=== PATIENT | female | born 1995 | race Caucasian/White ===

== ENCOUNTER 2024-03-27 09:04 | Outpatient (AMB) | payer OTHER, SELFPAY ==
[2024-03-27 09:15] VITALS: BP 132/80; BMI 57.7
--- NOTE | 2024-03-27 09:15 | MHC.PC.OV ---
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 Accompanied by: Self / Same As Patient Allergies No Known Allergies Allergy (Verified 03/27/24 09:29) Medication List - Last Reconciled 03/27/24 by Ofelia Orourke MD No Known Home Meds Tobacco use date assessed: 03/27/24 Dental Screening Dental Screen Date: 03/27/24 Did you have a dental visit in the last 12 months?: Yes Did you have a dental problem in the last 6 months where you did not have access to dental care?: No Was dental information given to patient?: Patient has dentist HPI HPI Comments History of Present Illness Details This is a 29-year-old female that comes for her physical exam as new patient. She has moderate major depression with no suicidal thoughts and would like counseling. She is morbidly obese with a BMI of 57.7 and will be referred to weight management. Has never had a Pap smear and will be referred to OBGYN. [facility] Surgical History No pertinent past surgical history Family History Mother Pre-diabetes Father No problems noted. Social History Housing: Apartment Alcohol intake: current Alcohol intake frequency: holidays/special occasions only Alcohol type: wine and other Patient Tobacco Use Status: Never used Tobacco e-Cigarette/Vaping Use: Never Used Second Hand Smoke Exposure: No service: No Current occupational status: employed Current occupational exposures/hazards: No Cognitive needs: No Hearing needs: No Vision needs: Yes Questionnaire PHQ-9 Over the last 2 weeks, how often have you been bothered by any of the following problems? 1. Little interest or pleasure in doing things: nearly every day 2. Feeling down, depressed, or hopeless: not at all 3. Trouble falling or staying asleep, or sleeping too much: several days 4. Feeling tired or having little energy: nearly every day 5. Poor appetite or overeating: more than half the days 6. Feeling bad about yourself - or that you are a failure or have let yourself or your family down: nearly every day 7. Trouble concentrating on things, such as reading the newspaper or watching television: more than half the days 8. Moving or speaking so slowly that other people could have noticed. Or the opposite - being so fidgety or restless that you have been moving around a lot more than usual: more than half the days 9. Thoughts that you would be better off or of hurting yourself in some way: not at all Total score: 16 Depression Screening Interpretation: Positive Depression Screening Follow-up: Existing condition and Follow-up Visit Requested Depression Screening Done: Yes 90000 - PHQ-9 Billing: Yes Source: Developed by Drs. Jose Daniel Canada, Chantel Harper, Bob Heard and colleagues, with an educational ap from [employer]. Thrive Questionnaire Date Thrive assessed: 03/23/24 I am a: Patient What is your living situation today?: I have a steady place to live Within the past 12 months, did the food you bought not last and you didn't have the money to get more?: Sometimes True Within the past 12 months, did you worry whether your food would run out before you got money to buy more?: Sometimes True Do you have trouble paying for medicines?: I choose not to answer this question Do you have trouble getting transportation to medical appointments?: No Do you have trouble paying your heating and electricity bill?: No Do you have trouble taking care of your child, family member or friend?: No Do you have trouble with day-to-day activities such as bathing, preparing meals, shopping, managing finances, etc.?: No Are you currently unemployed and looking for a job?: No Are you interested in more education?: Yes Please select the resources that you would like help with: Food Currently or been in a relationship where the following occur: No concerns reported THRIVE Score: 2 AUDIT C Alcohol Use Questionnaire (AUDIT-C) 1. How often do you have a drink containing alcohol?: Monthly or less 2. How many drinks containing alcohol do you have on a typical day when you are drinking?: 1 or 2 3. How often do you have six or more drinks on one occasion?: Never Total Score: 1 Score Reviewed/Action Taken: No EBONI-7 AMB Questionnaire EBONI-7 Date EBONI - 7 assessed: 03/27/24 Feeling nervous, anxious, or on edge: 1 = Several days Not being able to stop or control worryin = Several days Worrying too much about different things: 2 = More than half the days Trouble relaxin = Not at all Being so restless that it is hard to sit still: 1 = Several days Becoming easily annoyed or irritable: 3 = Nearly every day Feeling afraid as if something awful might happen: 1 = Several days Total EBONI-7 score (0-4 normal; 5-9 mild; 10-14 moderate; 15-21 severe): 9 Source: Developed by Drs. Jose Daniel Canada, Chantel Harper, Bob Heard and colleagues, with an educational ap from [employer]. EBONI-7 Assessment Billing EBONI-7 Assessment Tool: EBONI-7 Assessment 67659 Review of Systems Neuro Reports behavioral changes Psych Reports anxiety and Reports behavioral changes Physical exam (Primary Care) Vital Signs: Last Vital Signs BP 132/80 03/27/24 09:15 BMI result Body Mass Index 57.7 BMI Assessment/Plan discussion: High BMI High, discussed plan: lifestyle, weight reduction, dietary and physical activity Tobacco/Smoking Status: Tobacco use Status Tobacco use date assessed 03/27/24 03/27/24 09:23 Patient Tobacco Use Status Never used Tobacco 03/27/24 09:23 e-Cigarette/Vaping Use Never Used 03/27/24 09:23 PHQ-9: PHQ-9 Score PHQ-9: Total score 16 03/27/24 09:23 Depression Screening Interpretation: Positive Depression Screening Follow-up: Existing condition and Follow-up Visit Requested Thrive Assessment: Date of Thrive Assessment Date Thrive assessed 03/23/24 03/27/24 09:23 Currently or been in a relationship where the following occur: No concerns reported Assessment and Plan Assessment & Plan (1) Physical exam: Code(s): Z00.00 - Encounter for general adult medical examination without abnormal findings Plan: Repeat in a year. (2) Morbid obesity with BMI of 50.0-59.9, adult: Code(s): E66.01 - Morbid (severe) obesity due to excess calories; Z68.43 - Body mass index [BMI] 50.0-59.9, adult Plan: Referred to weight management. BMI goal is less than 30. (3) Moderate major depression: Code(s): F32.1 - Major depressive disorder, single episode, moderate Plan: Referred to counseling. Orders: Orders Comprehensive [place]. Panel Fast Today E66.01 - Morbid (severe) obesity due to excess calories, Z68.43 - Body mass index [BMI] 50.0-59.9, adult Complete Blood Count Auto Diff Today E66.01 - Morbid (severe) obesity due to excess calories, Z68.43 - Body mass index [BMI] 50.0-59.9, adult Lipid Panel Today E66.01 - Morbid (severe) obesity due to excess calories, Z68.43 - Body mass index [BMI] 50.0-59.9, adult Thyroid Stimulating Hormone Today E66.01 - Morbid (severe) obesity due to excess calories, Z68.43 - Body mass index [BMI] 50.0-59.9, adult Referrals Counseling Referral F32.1 - Major depressive disorder, single episode, moderate 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
== END 2024-03-27 09:43 | disposition home or self-care (01) ==
PROVIDERS: Visit Provider Internal Medicine
DX: Z00.00 Encounter for general adult medical examination without abnormal findings (principal); E66.01 Morbid (severe) obesity due to excess calories; Z68.43 Body mass index [BMI] 50.0-59.9, adult; F32.1 Major depressive disorder, single episode, moderate
CPT/HCPCS: 99213; 99385

== ENCOUNTER 2024-04-03 10:05 | Outpatient (REF) | payer OTHER, SELFPAY ==
[2024-04-03 10:34] LABS: MANUAL DIFF FLAG NO
[2024-04-03 11:20] LABS: Basophils Absolute Auto 0.1 X10*3/uL (0.0-0.2); Basophils Percent Auto 0.5 % (0-2); Eosinophils Absolute Auto 0.2 X10*3/uL (0.0-0.4); Eosinophils Percent Auto 1.7 % (0-4); Hematocrit 40.2 % (37.0-47.0); Hemoglobin 12.8 g/dl (12.0-16.0); Imm Gran Abs Auto 0.03 X10*3/uL (0.00-0.03); Imm Gran Pct Auto 0.3 % (0.0-0.4); Lymphocytes Absolute Auto 3.7 X10*3/uL (1.2-4.9); Lymphocytes Percent Auto 39.4 % (20-40); Mean Corpuscular HGB Conc 31.8 g/dl (31.0-35.0); Mean Corpuscular Volume 81.5 fL (80.0-98.0); Monocytes Absolute Auto 0.5 X10*3/uL (0.1-1.2); Neutrophils Percent Auto 53.1 % (45-73); Platelet Count 431 X10*3/uL (160-400); Red Blood Count 4.93 X10*6/uL (4.20-5.50); Red Cell Distribution Width 13.6 % (11.0-16.0); White Blood Count 9.4 X10*3/uL (4.8-10.8)
[2024-04-03 12:48] LABS: Alanine Aminotransferase 15 U/L (0-31); Albumin Level 3.9 g/dL (3.5-5.0); Alkaline Phosphatase 73 U/L (39-117); Anion Gap 12 (12-20); Aspartate Amino Transferase 14 U/L (5-31); Bilirubin Total 0.2 mg/dL (0.0-1.0); Blood Urea Nitrogen 10 mg/dL (9-16); Calcium 9.3 mg/dL (8.4-10.2); Carbon Dioxide 22 mmol/L (22-29); Chloride 107 mmol/L (96-108); Cholesterol 160 mg/dL (<200); Estimated Glomerular Filt Rate > 60; Glucose Fasting 100 mg/dL (60-99); HDL Cholesterol 45 mg/dL (>40); LDL Cholesterol Calculated 104 mg/dL (<100); Potassium 4.3 mmol/L (3.3-5.1); Sodium 137 mmol/L (135-145); Total Protein 7.5 g/dL (6.5-8.0); Triglycerides 55 mg/dL (<150)
== END 2024-04-03 10:06 | disposition home or self-care (01) ==
LOC: HO.LAB 10:05
PROVIDERS: PCP Internal Medicine; Visit Provider Internal Medicine
DX: E66.01 Morbid (severe) obesity due to excess calories (principal); Z68.43 Body mass index [BMI] 50.0-59.9, adult
CPT/HCPCS: 36415; 80053; 80061; 84443; 85025

== ENCOUNTER 2024-09-30 10:47 | Outpatient (AMB) | payer OTHER, SELFPAY ==
--- NOTE | 2024-09-30 10:53 | A.OFFPC_ITS ---
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 Accompanied by: Self / Same As Patient Allergies No Known Allergies Allergy (Verified 09/30/24 11:02) Medication List - Last Reconciled 09/30/24 by Ofelia Orourke MD No Known Home Meds Tobacco use date assessed: 09/30/24 Dental Screening Dental Screen Date: 09/30/24 Did you have a dental visit in the last 12 months?: Yes Did you have a dental problem in the last 6 months where you did not have access to dental care?: No Was dental information given to patient?: Patient has dentist HPI HPI Comments History of Present Illness Details The patient is a 29-year-old female presenting with follow-up for major depressive disorder and evaluation of chest pain. The patient reports mild depression, with a Patient Health Questionnaire-9 (PHQ-9) score of 8, indicating mild symptoms. She had planned counseling, but scheduling conflicts led to delays. Depression is currently manageable without medication, though counseling is considered beneficial. The patient also reports experiencing intermittent chest pain localized to the anterior chest wall, particularly around a persistent subcutaneous mass between her breasts. The mass has been present for years, with increased discomfort occurring recently that correlates with menstrual cycles. Pain is described as pressure-like and emerges at rest. She notes the ability to sometimes express a small amount of material from the mass. The patient has declined surgical evaluation at this point, preferring conservative management. In terms of weight management, the patient acknowledges dietary efforts, including reduced portions and increased awareness of fullness signals. She declined surgical weight management options but expressed interest in non- surgical interventions. There are no noted changes in the dermatological lesion present on the chest wall, nor an increase in size or itching. [facility] Medical History (Updated 09/30/24 @ 11:18 by Ofelia Orourke MD) Moderate major depression Surgical History No pertinent past surgical history Family History Mother Pre-diabetes Father No problems noted. Social History (Updated 09/30/24 @ 11:08 by Ofelia Orourke MD) Housing: Apartment Alcohol intake: current Alcohol intake frequency: holidays/special occasions only Alcohol type: wine and other Patient Tobacco Use Status: Never used Tobacco e-Cigarette/Vaping Use: Never Used Second Hand Smoke Exposure: No service: No Current occupational status: employed Current occupational exposures/hazards: No Cognitive needs: No Hearing needs: No Vision needs: Yes Questionnaire PHQ-9 Over the last 2 weeks, how often have you been bothered by any of the following problems? 1. Little interest or pleasure in doing things: more than half the days 2. Feeling down, depressed, or hopeless: several days 3. Trouble falling or staying asleep, or sleeping too much: not at all 4. Feeling tired or having little energy: not at all 5. Poor appetite or overeating: more than half the days 6. Feeling bad about yourself - or that you are a failure or have let yourself or your family down: not at all 7. Trouble concentrating on things, such as reading the newspaper or watching television: more than half the days 8. Moving or speaking so slowly that other people could have noticed. Or the opposite - being so fidgety or restless that you have been moving around a lot more than usual: several days 9. Thoughts that you would be better off or of hurting yourself in some way: not at all Total score: 8 Depression Screening Interpretation: Positive Depression Screening Follow-up: Existing condition and Follow-up Visit Requested Depression Screening Done: Yes 98431 - PHQ-9 Billing: Yes Source: Developed by Drs. Jose Daniel Canada, Chantel Harper, Bob Heard and colleagues, with an educational ap from [employer]. Thrive Questionnaire Date Thrive assessed: 09/30/24 I am a: Patient What is your living situation today?: I have a steady place to live Within the past 12 months, did the food you bought not last and you didn't have the money to get more?: Sometimes True Within the past 12 months, did you worry whether your food would run out before you got money to buy more?: Sometimes True Do you have trouble paying for medicines?: I choose not to answer this question Do you have trouble getting transportation to medical appointments?: No Do you have trouble paying your heating and electricity bill?: No Do you have trouble taking care of your child, family member or friend?: No Do you have trouble with day-to-day activities such as bathing, preparing meals, shopping, managing finances, etc.?: No Are you currently unemployed and looking for a job?: No Are you interested in more education?: Yes Please select the resources that you would like help with: Food Currently or been in a relationship where the following occur: No concerns reported THRIVE Score: 2 AUDIT C Alcohol Use Questionnaire (AUDIT-C) 1. How often do you have a drink containing alcohol?: Monthly or less 2. How many drinks containing alcohol do you have on a typical day when you are drinking?: 1 or 2 3. How often do you have six or more drinks on one occasion?: Never Total Score: 1 Score Reviewed/Action Taken: No EBONI-7 AMB Questionnaire EBONI-7 Date EBONI - 7 assessed: 09/30/24 Feeling nervous, anxious, or on edge: 1 = Several days Not being able to stop or control worryin = Not at all Worrying too much about different things: 1 = Several days Trouble relaxin = Not at all Being so restless that it is hard to sit still: 0 = Not at all Becoming easily annoyed or irritable: 1 = Several days Feeling afraid as if something awful might happen: 1 = Several days Total EBONI-7 score (0-4 normal; 5-9 mild; 10-14 moderate; 15-21 severe): 4 Source: Developed by Drs. Jose Daniel Canada, Chantel Harper, Bob Heard and colleagues, with an educational ap from [employer]. EBONI-7 Assessment Billing EBONI-7 Assessment Tool: EBONI-7 Assessment 44612 Review of Systems Const All systems reviewed & are unremarkable except as noted in HPI and below Card Denies chest pain at rest, Denies chest pain with activity, Denies edema, Denies irregular heart rhythm, Denies claudication, Denies dyspnea, Denies dyspnea on exertion, Denies orthopnea, Denies paroxysmal nocturnal dyspnea and Denies slow heart rate Resp Denies cough, Denies dyspnea and Denies dyspnea on exertion GI Denies abdominal pain, Denies change in bowel habits, Denies excessive flatus, Denies nausea and Denies vomiting Physical exam (Primary Care) Vital Signs: Last Vital Signs BP 120/82 09/30/24 10:54 BMI result Body Mass Index 57.2 BMI Assessment/Plan discussion: High BMI High, discussed plan: lifestyle, weight reduction, dietary and physical activity Tobacco/Smoking Status: Tobacco use Status Tobacco use date assessed 03/27/24 09/30/24 11:01 Patient Tobacco Use Status Never used Tobacco 09/30/24 11:01 e-Cigarette/Vaping Use Never Used 09/30/24 11:01 PHQ-9: PHQ-9 Score PHQ-9: Total score 8 09/30/24 11:01 Depression Screening Interpretation: Positive Depression Screening Follow-up: Existing condition and Follow-up Visit Requested Thrive Assessment: Date of Thrive Assessment Date Thrive assessed 09/30/24 09/30/24 11:01 Currently or been in a relationship where the following occur: No concerns reported Resp Effort & Inspection: normal respiratory effort Auscultation: clear to auscultation bilaterally Cardio Jugular venous distension: no JVD Rate: regular rate Rhythm: regular rhythm Heart sounds: S1 normal heart sound present and S2 normal heart sound present Extrem General: Yes full ROM Psych Appearance: grossly normal Coding Level of Care Code Est Pt Level 4 (49800) Complex EM visit Add On G2211 Diagnoses Skin lesion L98.9 Chest pain R07.9 Mild recurrent major depression F33.0 Morbid obesity with BMI of 50.0-59.9, adult E66.01; Z68.43 Additional Codes PHQ-9 - 49645 - PHQ-9 Billing: Yes ([id number]) EBONI-7 Assessment Billing - EBONI-7 Assessment Tool: EBONI-7 Assessment 48524 ([id number]) Time Spent (min) 21 Assessment & Plan Assessment & Plan (1) Skin lesion: Code(s): L98.9 - Disorder of the skin and subcutaneous tissue, unspecified Category: Medical (2) Chest pain: Code(s): R07.9 - Chest pain, unspecified Category: Medical (3) Mild recurrent major depression: Code(s): F33.0 - Major depressive disorder, recurrent, mild Category: Medical (4) Morbid obesity with BMI of 50.0-59.9, adult: Code(s): E66.01 - Morbid (severe) obesity due to excess calories; Z68.43 - Body mass index [BMI] 50.0-59.9, adult Category: Medical Plan - A counseling referral will be made to support management of major depressive disorder. - An electrocardiogram EKG) has been ordered to rule out cardiac causes of the chest pain. - A referral to dermatology will be provided for further evaluation of the chest lesion. - Weight management strategies were discussed, recommending portion control and structured eating times, alongside exercise considerations. Patient was informed and verbally consented to the use of an ambient scribe for clinic note documentation during this visit. During this visit, the patient was advised on the benefits of counseling for managing depression, and a referral was initiated. We discussed the chest pain's correlation with menstrual cycles and agreed upon conducting an EKG to eliminate potential cardiac causes. The patient was offered a surgical consultation for the subcutaneous chest mass, which she declined due to apprehension about surgical intervention at this time. Non-surgical weight management strategies were reviewed, including portion control and timing of meals. The referral to dermatology was made for the non-urgent examination of the chest wall lesion. The importance of regular follow-up and adherence to the recommended evaluations was emphasized. Orders: Orders ECG 12 lead EKG Today R07.9 - Chest pain, unspecified Referrals Counseling Referral F33.0 - Major depressive disorder, recurrent, mild Dermatology Referral L98.9 - Disorder of the skin and subcutaneous tissue, unspecified Patient Instructions: - Follow up with counseling services as referred. - Proceed with EKG as discussed. - Follow dietary guidelines: control meal portions, limit carbohydrate intake, and maintain structured meal times. - Visit dermatology for assessment of the chest lesion. - Return for follow-up as needed or if symptoms worsen.
[2024-09-30 10:54] VITALS: BP 120/82; BMI 57.2
== END 2024-09-30 11:17 | disposition home or self-care (01) ==
PROVIDERS: PCP Internal Medicine; Visit Provider Internal Medicine
DX: L98.9 Disorder of the skin and subcutaneous tissue, unspecified (principal); R07.9 Chest pain, unspecified; F33.0 Major depressive disorder, recurrent, mild; E66.01 Morbid (severe) obesity due to excess calories; Z68.43 Body mass index [BMI] 50.0-59.9, adult

== ENCOUNTER → 2024-09-30 10:47 | Outpatient (BNVA) | payer OTHER, SELFPAY | PROVIDERS: PCP Internal Medicine; Visit Provider Internal Medicine | DX: F33.0 Major depressive disorder, recurrent, mild (principal); L98.9 Disorder of the skin and subcutaneous tissue, unspecified; R07.9 Chest pain, unspecified; E66.01 Morbid (severe) obesity due to excess calories; Z68.43 Body mass index [BMI] 50.0-59.9, adult | CPT/HCPCS: 96127 ==

== ENCOUNTER 2025-02-05 08:51 | Outpatient (AMB) | payer OTHER, SELFPAY ==
--- NOTE | 2025-02-05 08:54 | A.OFFVIS_ITS ---
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 First pelvic exam. Regular monthly menses x 3-4d. Never sexually active or close intimate contact. She denies vaginal itching or irritation. Not eat healthy and stays active with walking. Denies family history of breast, ovarian or colon cancer. PFSH Medical History Moderate major depression Surgical History No pertinent past surgical history Family History Mother Pre-diabetes Father No problems noted. Social History Housing: Apartment Alcohol intake: current Alcohol intake frequency: holidays/special occasions only Alcohol type: wine and other Patient Tobacco Use Status: Never used Tobacco e-Cigarette/Vaping Use: Never Used Second Hand Smoke Exposure: No service: No Current occupational status: employed Current occupational exposures/hazards: No Cognitive needs: No Hearing needs: No Vision needs: Yes Female Reproductive History Menstrual Duration of menses: 3-5 days Date of last menstrual period: 01/26/25 control method: none Total pregnancies: 0 Review of Systems Const All systems reviewed & are unremarkable except as noted in HPI and below Reports as per HPI Eyes Reports no additional complaints ENT Reports no additional complaints Card Reports no additional complaints Resp Reports no additional complaints GI Reports as per HPI and Reports no additional complaints Reports as per HPI Musc Reports no additional complaints Skin/Breast Reports as per HPI Neuro Reports no additional complaints Psych Reports no additional complaints Endo Reports no additional complaints Abram/Lymph Reports no additional complaints Aller/Immun Reports no additional complaints Physical Exam Vital Signs: BMI result Body Mass Index 56.6 Const General: cooperative, healthy appearing, no acute distress, well developed and alert Orientation/consciousness: patient oriented x3 HEENT Head: Yes normal to inspection Eyes General: appearance normal, both eyes and all related structures Neck Neck: Yes normal visual inspection Thyroid: Thyroid normal Chest Chest palpation & inspection: normal inspection of the chest and other (no puckering, dimpling, peau de orange, retraction, discharge, masses) Breast/axilla inspection: normal inspection of the breasts Breast/axilla palpation: normal palpation of the breasts Resp Effort & Inspection: normal respiratory effort GI Inspection: Yes normal to inspection Palpation (GI): Soft to palpation Rectal Exam - Female: deferred General: Yes bladder normal to palpation External Female Exam: normal external appearance and normal appearance of the urethra Speculum Exam - Vagina: normal appearance of the vagina, normal palpation and normal vaginal discharge Speculum Exam - Cervix: normal appearance of the cervix and normal palpation Bimanual exam- vagina & uterus: normal bimanual exam, normal palpation, uterine size normal, bladder normal to palpation, normal palpation and non-tender Bimanual Exam- Adnexa, other: no masses Skin General skin exam: no rashes or lesions noted Rashes: no rashes Neuro General: patient oriented x3 Cognition (Neuro): normal cognition Extrem General: Yes normal to inspection Psych Attitude: cooperative Thought process: Normal thought process present Assessment & Plan Assessment & Plan (1) Encounter for well woman exam with routine gynecological exam: Code(s): Z01.419 - Encounter for gynecological examination (general) (routine) without abnormal findings Category: Medical Plan Discussed: Current recommendations for pap smears per ASCCP guidelines. Pap obtained. Breast awareness and periodic breast exams. Maintain a healthy lifestyle including a well balanced diet and routine exercise. Use condoms for STI and prevention if indicated. Patient verbalizes understanding and agrees to the plan of care. She was given opportunity to ask questions and all questions were answered to the best of my ability. Sign up for the patient portal. RTO in one year for annual machine records units supervisor examination. This note is constructed using voice recognition software. While every effort has been made to ensure accuracy, bending machine operator errors may have been included. Orders: Orders Pap Smear Today Z01.419 - Encounter for gynecological examination (general) (routine) without abnormal findings Coding Level of Care Code New Pt Prev Care 18-39yr(79844 Diagnoses Encounter for well woman exam with routine gynecological exam Z01.419
[2025-02-05 08:58] VITALS: BP 112/66; BMI 56.6
== END 2025-02-05 10:25 | disposition home or self-care (01) ==
LOC: HO.HWS 08:51
PROVIDERS: PCP Internal Medicine; Visit Provider Advanced Practice Midwife
DX: Z01.419 Encounter for gynecological examination (general) (routine) without abnormal findings (principal)
CPT/HCPCS: 99385; 99459

== ENCOUNTER 2025-02-05 08:51 | Outpatient (REF) | payer OTHER, SELFPAY | END 2025-02-05 08:52 | disposition home or self-care (01) | LOC: HO.LNP 08:51 | PROVIDERS: PCP Internal Medicine; Visit Provider Advanced Practice Midwife | DX: Z01.419 Encounter for gynecological examination (general) (routine) without abnormal findings (principal) | CPT/HCPCS: 88175 ==

== ENCOUNTER 2025-07-16 13:52 | Outpatient (AMB) | payer OTHER, SELFPAY ==
[2025-07-16 13:57] VITALS: BP 147/71; PULSE 90; BMI 57.8
--- NOTE | 2025-07-16 13:57 | A.OFFVIS_ITS ---
Vital Signs 3 07/16/25 13:57 Height 5 ft Weight 296 lb BMI 57.8 BP 147/71 H Blood Pressure Location Rt radial Position Sitting Pulse 90 Intake Visit Reasons: cyst mid chest Intake Note: Patient referred by PCP Dr. Deon Orourke for evaluation of cyst on mid chest. Present for yrs. Seen at Urgent care in May. Patient c/o: reports cyst much smaller but mass still present. 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 that grew, became infected and then drained spontaneously. She reports that she can not really feel anything in the area at this point but kept the appointment anyway. She denies any trauma or surgery to the region. [facility] Medical History Moderate major depression Surgical History No pertinent past surgical history Family History Mother Pre-diabetes Father No problems noted. Social History Housing: Apartment Alcohol intake: current Alcohol intake frequency: holidays/special occasions only Alcohol type: wine and other Patient Tobacco Use Status: Never used Tobacco e-Cigarette/Vaping Use: Never Used Second Hand Smoke Exposure: No service: No Current occupational status: employed Current occupational exposures/hazards: No Cognitive needs: No Hearing needs: No Vision needs: Yes Review of Systems Const All systems reviewed & are unremarkable except as noted in HPI and below Physical Exam Vital Signs: Last Vital Signs Pulse 90 07/16/25 13:57 BP 147/71 H 07/16/25 13:57 BMI result Body Mass Index 57.8 Const General: cooperative and healthy appearing Nutritional Appearance: obese morbidly obese Orientation/consciousness: oriented to person, oriented to place and oriented to time HEENT Head: Yes normal to inspection, Yes normocephalic and Yes atraumatic Ears: hearing grossly normal bilaterally General nose exam: Normal external nose present Eyes Sclerae: sclerae normal Pupils: Equal, round and reactive pupils present EOM: EOMs intact bilaterally Neck Neck: Yes normal visual inspection Chest Chest/axillae images: 2 1. Region of patient's concern. No lesion or cyst appreciated. Resp Effort & Inspection: normal respiratory effort and able to speak in complete sentences Cardio Rate: regular rate Rhythm: regular rhythm GI Inspection: Yes normal to inspection Back/Spine/Pelvis Cervical Spine: normal cervical lordosis Thoracic/Lumbar Spine: thoracic and lumbar spine normal to inspection Neuro General: oriented to person, oriented to place and oriented to time Cranial nerves: Yes Equal, round and reactive pupils present Extrem General: Yes normal to inspection Assessment & Plan Assessment & Plan (1) Skin lesion: Code(s): L98.9 - Disorder of the skin and subcutaneous tissue, unspecified Category: Medical Plan: I told the patient that I could appreciate any sort of skin cyst or lesion at this visit and unfortunately could not operatively excise something that was not there. She indicates that she understands. Offered her a follow-up appointment in 6 months in case of lesion returns and she accepted. She is also agreed to contact us should she need to be seen sooner. My assessment of her condition as well as the plan for care were described to her in detail and she indicated she was happy with what was outlined to her. Coding Level of Care Code New Pt Level 3 (29011) Diagnoses Skin lesion L98.9 Time Spent (min) 30 Comment Patient visit, record review and coordination of care time
== END 2025-07-16 14:09 | disposition home or self-care (01) ==
LOC: HO.HGS 13:53
PROVIDERS: PCP Internal Medicine; Visit Provider Surgery
DX: L98.8 Other specified disorders of the skin and subcutaneous tissue (principal)
CPT/HCPCS: 99203